=== PATIENT | male | born 1975 | race Caucasian/White ===

== ENCOUNTER 2023-10-08 21:08 | Emergency (ER) | payer OTHER, SELFPAY ==
[2023-10-08 21:18] VITALS: BP 136/89
[2023-10-08 21:22] VITALS: BMI 28.0
--- NOTE | 2023-10-08 22:57 | ED.GENMED ---
History of Present Illness
General
Chief Complaint: Crisis Evaluation
Source: patient and other (302)
Exam Limitations: none
Time Seen by Provider: 10/08/23 22:55
Nursing documentation reviewed up to this point in time: agreed with
History of Present Illness
History of Present Illness:
Patient came the emergency department earlier, and then admitted to having suicidal ideation, but left. He was initially a 201, voluntary commission. He is now under 302. He has plan to cut his wrists, and also has heard voices that tell him to
hurt himself and others. He is considered harming his girlfriend manage she was cheating on him with. Patient currently denying this.
Past History
Past History
ED Past Medical History: Psychiatric (bipolar, schizophrenia)
ED Past Surgical History: None
Social History
Tobacco: Smoker
Alcohol: None
Drug: None
Review of Systems
Review of Systems
Allergies reviewed?: Yes
All Other Systems: Not applicable
Constitutional: Reports no symptoms
EENT: Reports no symptoms
Respiratory: Reports no symptoms
Cardiac: Reports no symptoms
ABD/GI: Reports no symptoms
: Reports no symptoms
Musculoskeletal: Reports no symptoms
Skin: Reports no symptoms
Neurological: Reports no symptoms
Endocrine: Reports no symptoms
Hematologic/Lymphatic: Reports no symptoms
Psychiatric: Reports suicidal and hallucinations
Phy Exam
Physical Exam
Physical Exam:
Physical Exam
General: no apparent distress, not acutely ill
Neck: supple. no meningeal signs. normal posterior pharynx
Heart: s1/s2 regular rate and rhythm, no murmur. equal radial
pulses.
HEENT: Pupils equal round reactive to light, EOMI
Lungs: no acute respiratory distress. clear bilaterally
Abdomen: normal bowel sounds. not tender. no CVAT
Neuro: alert and oriented. no focal neurological deficits cranial nerves II through XII intact
Skin: no rash
Psychiatric: well kept. interactive and cooperative, flat affect
Extremities: no edema. no calf tenderness. negative homans. good distal pulses
Course
Orders/Labs/Results
Orders:
Orders
10/08/23 21:17
1:1 Observation - Suicide/ Violent Behavior As Directed
Vital Signs
Initial and Last Documented VS:
Initial Vital Signs
Temp Pulse Resp BP Pulse Ox
98.0 F 92 18 136/89 99
10/08/23 21:18 10/08/23 21:18 10/08/23 21:18 10/08/23 21:18 10/08/23 21:18
Last Documented Vital Signs
Temp Pulse Resp BP Pulse Ox
98.0 F 92 20 136/89 99
10/08/23 21:18 10/08/23 21:18 10/08/23 22:00 10/08/23 21:18 10/08/23 21:18
MDM/Problems Addressed
Differential Diagnosis Includes:
Schizophrenia exacerbation
MDM/Problems Addressed:
48-year-old male with schizophrenia and bipolar, suicidal and homicidal ideation. Transfer to psych facility. Patient stable at this time.
Chronic conditions affecting care: Psychiatric illness (Schizophrenia)
Acute Exacerbation and/or Progression of Chronic Illness: Psychiatric illness (Schizophrenia)
*Critical Care Note
Total Time (30-74mins, 75-104mins- exclusive of procedures): Not Applicable
Patient Management
Social determinants of health affecting care: Living situation
Discussion with other providers: [facility] (Telepsychiatry Dr. Anu Fowler Melanie upheld 302 depression, suicidal ideation)
Escalation/DeEscalation of care consider admission/obs:
transfer to psychiatric facility indicated
ED Attending Note
-
Portions of this chart may have been created with voice recognition software.� Occasional wrong word or��sound alike� substitutions may have occurred due to the inherent limitations of voice recognition software.
Discharge Plan
Departure
Patient Disposition: Psych Facility
Date of Disposition: 10/08/23
Time of Disposition: 23:11
Patient Status:: 302
Patient with high blood pressure during this ER visit?: Yes
Condition: Good
Discharge Problem:
Schizophrenia, Suicidal ideation
Prescriptions:
No Action
No Current Medications
0
Referrals:
NONE,* [Family Provider] -
Interventions
Interventions:
*Risk Screen - Suicide Last Done: 10/08/23 21:11
*General Assessment Last Done: 10/08/23 21:11
*Neglect/Abuse Screening Last Done: 10/08/23 21:11
ED- Fall Risk Assessment Last Done: 10/08/23 21:34
*ED COVID-19 Vaccine History Last Done: 10/08/23 21:11
ED-Psychological Assessment Last Done: 10/08/23 21:34
Discharge Date and Time
Print Language: CITIZEN OF [place]
== END 2023-10-09 02:44 ==
LOC: EMR 21:08
PROVIDERS: EMERGENCY PHYSICIAN Emergency Medicine
DX: R45.851 Suicidal ideations (principal); R45.850 Homicidal ideations; R44.0 Auditory hallucinations; F20.9 Schizophrenia, unspecified; R03.0 Elevated blood-pressure reading, without diagnosis of hypertension; F31.9 Bipolar disorder, unspecified; F17.210 Nicotine dependence, cigarettes, uncomplicated
CPT/HCPCS: 99285